=== PATIENT | male | born 1950 | race Caucasian/White ===

== ENCOUNTER → 2018-10-31 | Outpatient (REF) ==
[~2018-10-31] MED LIST: AMBIEN5 MG PO; ASPIRIN E.C. 8181 MG PO; ZOCOR20 MG PO
[2018-10-31 19:55] LABS: THYROID STIMULATING HORMONE 2.02 uIU/mL (0.465-4.680)
[2018-10-31 20:16] LABS: PSA-TOTAL 2.74 ng/mL (0-4)
== END ==
LOC: ZLAB.WCH 19:09
PROVIDERS: Physician Assistant
DX: Z01.89 Encounter for other specified special examinations (principal)
CPT/HCPCS: G0103

== ENCOUNTER 2023-05-08 10:30 | Outpatient (RCR) | payer MEDICARE, MEDICAID | END 2023-05-09 12:32 | disposition home or self-care (01) | LOC: MKS.ESL.PT 10:30 | DX: Z74.09 Other reduced mobility (principal) ==